=== PATIENT | female | born 1990 | race Caucasian/White ===

== ENCOUNTER 2021-04-07 22:13 | Emergency (ER) | payer MEDICAID, OTHER ==
[~2021-04-07] VITALS: Ht 161.3 cm; Wt 66.0 kg
--- NOTE | 2021-04-07 22:49 | NUR ---
NIL X 1
[2021-04-08 01:55] LABS: BASOPHILS % (AUTO) 1 % (0-1); EOSINOPHILS % (AUTO) 1 % (1-7); LYMPHOCYTES % (AUTO) 35 % (22-44); MEAN CORPUSCULAR HEMOGLOBIN 30.6 pg (27.0-34.8); MEAN CORPUSCULAR HGB CONC 35.1 g/dL (32.4-35.8); MEAN PLATELET VOLUME 6.8 fL (7.4-10.4); MONOCYTES % (AUTO) 10 % (2-9); NEUTROPHILS % (AUTO) 54 % (42-75); PLATELET COUNT 314 x10^3/uL (130-400); RED BLOOD COUNT 4.32 x10^6/uL (3.82-5.3)
[2021-04-08 01:57] VITALS: BP 125/83
--- NOTE | 2021-04-08 02:05 | NUR ---
REPORT GIVEN TO RAJWINDER RUDOLPH
[2021-04-08 02:07] LABS: ALBUMIN 3.4 g/dL (3.4-5.0); ANION GAP 4 mmol/L (5-15); CALCIUM 8.6 mg/dL (8.5-10.1); CHLORIDE 105 mmol/L (98-107); CREATININE 0.48 mg/dL (0.55-1.02)
--- NOTE | 2021-04-08 03:27 | NUR ---
Patient/Caregiver given discharge instructions and they have confirmed that they understand the instructions. Patient ambulatory with steady gait. NAD, all questions answered appropriately, denies additional needs at this time. No personal belongings left in room after discharge.
== END 2021-04-08 03:28 | disposition home or self-care (01) ==
LOC: ED 04-08 03:00
DX: L50.1 Idiopathic urticaria (principal); L52 Erythema nodosum; M79.89 Other specified soft tissue disorders
CPT/HCPCS: 36415; 71045; 80048; 82040; 85025; 99285